=== PATIENT | male | born 1960 | race Caucasian/White ===

== ENCOUNTER 2021-05-01 05:22 | Day surgery (SDC) | payer OTHER ==
[2021-04-24 15:32] LABS: BASOPHILS % (AUTO) 0.6 % (0-1); EOSINOPHILS # (AUTO) 0.1 X10'3 (0-0.9); EOSINOPHILS % (AUTO) 1.1 % (0-6); LYMPHOCYTES # (AUTO) 1.6 X10'3 (1.1-4.8); LYMPHOCYTES % (AUTO) 20.7 % (21-51); MEAN CORPUSCULAR HEMOGLOBIN 32.9 PG (27.0-31.0); MEAN CORPUSCULAR HGB CONC 33.9 g/dL (33.0-36.5); MEAN CORPUSCULAR VOLUME 97.2 FL (78-98); MEAN PLATELET VOLUME 7.4 FL (7.4-10.4); MONOCYTES # (AUTO) 0.6 X10'3 (0-0.9); MONOCYTES % (AUTO) 8.1 % (2-12); NEUTROPHILS # (AUTO) 5.3 X10'3 (1.8-7.7); NEUTROPHILS % (AUTO) 69.5 % (42-75); PRE OP HEMATOCRIT 43.9 % (42.0-52.0); PRE OP HEMOGLOBIN 14.9 g/dL (14.0-17.9); PRE OP PLATELET COUNT 280 X10'3 (140-440); RED BLOOD COUNT 4.51 X10'6 (4.70-6.10); RED CELL DISTRIBUTION WIDTH 12.8 % (11.5-14.5)
[2021-04-24 15:45] LABS: PRE OP PROTIME 10.5 SECONDS (9.0-12.0)
[2021-04-24 15:49] LABS: ALBUMIN 4.3 G/DL (3.4-5.0); ALBUMIN/GLOBULIN RATIO 1.2 (1.1-1.5); ALKALINE PHOSPHATASE 65 IU/L (46-116); BLOOD UREA NITROGEN 24 MG/DL (7-18); BUN/CREATININE RATIO 30.8 (5.4-32.0); CALCIUM 9.1 MG/DL (8.5-10.1); CHLORIDE 103 MMOL/L (99-107); CREATININE 0.78 MG/DL (0.60-1.10); PRE OP ALT 30 U/L (30-65); PRE OP ANION GAP 13 (8-16); PRE OP AST 16 U/L (10-37); PRE OP BILIRUB, TOTAL 0.4 MG/DL (0.0-1.0); PRE OP GLUCOSE 106 MG/DL (70-104); PRE OP POTASSIUM 3.9 MMOL/L (3.4-5.1); PRE OP SODIUM 141 MMOL/L (135-145); TOTAL CARBON DIOXIDE 25.5 MMOL/L (24-32); TOTAL PROTEIN 7.8 G/DL (6.4-8.2); eGFR > 90 ML/MIN
[~2021-05-01] VITALS: Ht 180.3 cm; Wt 85.1 kg
[2021-05-01] VITALS (28 sets, daily range): BP systolic 98–138; BP diastolic 56–77
[~2021-05-01 05:22] MED LIST: ACET-1025 PO; MULT-1085 PO; NAPR220C15 PO; ringers solution, lacted 1,000 ML IV SCH
[2021-05-01] MEDS ORDERED: famotidine 20mg tablet PO ONE (05:30)
[2021-05-01] MEDS ORDERED: tranexamic acid inj. 1,000 MG in 0.7% saline 100 ML PMX IV ONE (05:30)
[2021-05-01] MEDS ORDERED: cefazolin/dext.iso 2gm/50ml IV ONE (05:30)
[2021-05-01] MEDS ORDERED: vancomycin 1,500 MG in NS 300ml IV soln IV ONE (05:30)
[2021-05-01] MEDS ORDERED: tetracaine 1% (10mg/ml) pres. free inj. ONE (07:10)
[2021-05-01] MEDS ORDERED: morphine /PF 1mg/ml 10ml inj. ONE (07:11)
[2021-05-01] MEDS ORDERED: MIDAZolam 1mg/ml 10ml vial ONE (07:11)
[2021-05-01] MEDS ORDERED: propofol inj 20 ML IV ONE ×4 (07:36→08:08)
[2021-05-01] MEDS ORDERED: diphenhydrAMINE 50 mg/ml inj ONE (07:45)
[2021-05-01] MEDS ORDERED: ketorolac trometh. 30mg/ml inj. ONE ×2 (08:07→09:32)
[2021-05-01] MEDS ORDERED: cloNIDine hcl/PF 100mcg/ml inj ONE (08:07)
[2021-05-01] MEDS ORDERED: vancomycin 1,000mg inj ONE (08:07)
[2021-05-01] MEDS ORDERED: ROPIVAcaine 0.5% (5mg/ml) 30ml vial ONE ×2 (08:07→08:10)
[2021-05-01] MEDS ORDERED: fentaNYL/PF 50MCG/1 ML 2ML syringe IV PRN ×2 (08:20)
[2021-05-01] MEDS ORDERED: ringers solution, lacted 1,000 ML IV SCH (08:20)
[2021-05-01] MEDS ORDERED: morphine 4 MG/ML inj SYRINge IV PRN (08:20)
[2021-05-01] MEDS ORDERED: ondansetron/PF 4mg/2ml inj IV PRN ×2 (08:20→10:00)
[2021-05-01] MEDS ORDERED: labetalol 20mg/4ml (5mg/ml) syringe IV PRN (08:20)
[2021-05-01] MEDS ORDERED: hydrALAZINE 20mg/ml inj. IV PRN (08:20)
[2021-05-01] MEDS ORDERED: morphine 2 MG/ML inj. syringe IV PRN (08:20)
[2021-05-01] MEDS ORDERED: fentaNYL/PF 50MCG/1 ML 2ML syringe ONE (09:33)
--- NOTE | 2021-05-01 09:49 | NUR ---
Received from OR via , accompanied by Anesthesiologist DR PARRY and report given by Anesthesiolgist. AWAKENS TO VOICE. VITALS STABLE. DRESSING DI. MAEGAN PAIN. SENSATION AT THE HIPS. GRESHAM WITH CLEAR URINE.
[2021-05-01] MEDS ORDERED: bisacodyl 10mg suppository rectal RC PRN (10:00)
[2021-05-01] MEDS ORDERED: HYDROcodone/acetaminophen 10/325mg tab PO PRN (10:00)
[2021-05-01] MEDS ORDERED: acetaminophen 325mg tablet PO PRN (10:00)
[2021-05-01] MEDS ORDERED: HYDROmorphone 1 mg/ml syringe IV PRN (10:00)
[2021-05-01] MEDS ORDERED: diphenhydrAMINE 25mg capsule PO PRN ×2 (10:00)
[2021-05-01] MEDS ORDERED: magnesium hydroxide 30ml (MOM) UD suspension PO PRN (10:00)
--- NOTE | 2021-05-01 13:59 | NUR ---
Report called to receiving nurse. Transferred via [facility] . Special Issues communicated to receiving nurse.AWAKE AND ORIENTED. VITALS STABLE. DRESSING DI. MAEGAN PAIN. IS STARTING TO MOVE LWR EXTREMITIES SOME. TO SURGICAL RM 345B AT THIS TIME.
[2021-05-01] MEDS: HYDROcodone/acetaminophen 10/325mg tab PO PRN ×2 (15:35→21:43)
[2021-05-01] MEDS: potassium Cl 20mEq in NS 1,000 ML IV SCH ×2 (15:36→23:20)
--- NOTE | 2021-05-01 17:02 | NUR ---
1400 pt arrived to unit. no acute changes from previous assessment per rn palliativemejia fletcher report. pt arrived with iv, iv pump infusing LR@100, chart
[2021-05-01] MEDS ORDERED: NO HOME MEDS (17:26)
[2021-05-01] MEDS ORDERED: aspirin 81mg, enteric-coated 1 TAB TABLET.DR PO ONE (17:30)
[2021-05-01] MEDS: ceFAZolin/D5W- 1GM premix 50 ML IV SCH (17:52)
[2021-05-01] MEDS ORDERED: vancomycin/NS 1 GM ADD-VANTAGE 250 ML IV SCH (20:00)
[2021-05-01] MEDS ORDERED: sennosides 8.6mg tablet PO SCH (21:00)
[2021-05-02] VITALS: BP 108/58
[2021-05-02] MEDS: ceFAZolin/D5W- 1GM premix 50 ML IV SCH (00:16)
[2021-05-02] MEDS: HYDROcodone/acetaminophen 10/325mg tab PO PRN ×4 (03:54→16:49)
[2021-05-02 04:00] VITALS: BP 115/65
[2021-05-02 06:14] LABS: BASOPHILS % (AUTO) 0.5 % (0-1); EOSINOPHILS # (AUTO) 0.3 X10'3 (0-0.9); EOSINOPHILS % (AUTO) 4.7 % (0-6); HEMOGLOBIN 10.8 g/dl (14.0-17.9); LYMPHOCYTES # (AUTO) 1.3 X10'3 (1.1-4.8); LYMPHOCYTES % (AUTO) 22.4 % (21-51); MEAN CORPUSCULAR HEMOGLOBIN 33.9 PG (27.0-31.0); MEAN CORPUSCULAR HGB CONC 34.9 g/dL (33.0-36.5); MEAN CORPUSCULAR VOLUME 97.3 FL (78-98); MONOCYTES % (AUTO) 16.5 % (2-12); NEUTROPHILS # (AUTO) 3.3 X10'3 (1.8-7.7); NEUTROPHILS % (AUTO) 55.9 % (42-75); PLATELET COUNT 184 X10'3 (140-440); RED BLOOD COUNT 3.19 X10'6 (4.70-6.10); RED CELL DISTRIBUTION WIDTH 12.5 % (11.5-14.5)
[2021-05-02 06:35] LABS: ALANINE AMINOTRANSFERASE 16 U/L (12-78); ALBUMIN/GLOBULIN RATIO 1.2 (1.1-1.5); ALKALINE PHOSPHATASE 48 IU/L (46-116); ANION GAP 4 (8-16); ASPARTATE AMINO TRANSFERASE 12 U/L (10-37); BILIRUBIN,TOTAL 0.6 MG/DL (0.1-1.0); BLOOD UREA NITROGEN 12 MG/DL (7-18); BUN/CREATININE RATIO 15.4 (5.4-32.0); CALCIUM 8.6 MG/DL (8.5-10.1); CHLORIDE 107 MMOL/L (99-107); CREATININE 0.78 MG/DL (0.60-1.10); GLUCOSE 104 MG/DL (70-104); POTASSIUM 4.5 MMOL/L (3.5-5.1); SODIUM 140 MMOL/L (135-145); TOTAL CARBON DIOXIDE 29.2 MMOL/L (24-32); TOTAL PROTEIN 5.6 G/DL (6.4-8.2); eGFR > 90 ML/MIN
--- NOTE | 2021-05-02 06:36 | NUR ---
Problems reprioritized. Patient report given, questions answered & plan of care reviewed with HERMINIA. Addendum: 05/02/21 at 0636 by Addison Rice RN Amended: Links added.
[2021-05-02 08:00] VITALS: BP 114/59
[2021-05-02 08:39] LABS: PLATELET ESTIMATE NORMAL; TOTAL CELLS COUNTED 100
[2021-05-02 11:00] VITALS: BP 121/67
[2021-05-02] MEDS ORDERED: HYDR-3972 PO (11:42)
--- NOTE | 2021-05-02 14:53 | NUR ---
Joint surgery consult: Pt s/p L knee surgery seen by MELYSSA for written/verbal high protein ed w/ RD contact information provided. MELYSSA encouraged pt to contact dietitian's office if further questions/concerns. Addendum: 05/02/21 at [address] Á[address] RD Amended: Links added.
--- NOTE | 2021-05-02 15:34 | NUR ---
TO from dr toth for d/c home. f/u in office sat. script of script to [facility]. continue home meds. act as tolerated
== END 2021-05-02 17:07 | disposition home or self-care (01) ==
LOC: PAS 05:22 → SUR 3N 10:05 → PAS 05-02 17:07
PROVIDERS: ATTEND Orthopaedic Surgery
DX: M17.12 Unilateral primary osteoarthritis, left knee (principal); G89.18 Other acute postprocedural pain; Z20.822 Contact with and (suspected) exposure to COVID-19; Z79.899 Other long term (current) drug therapy; Z79.01 Long term (current) use of anticoagulants; Z98.890 Other specified postprocedural states; Z96.651 Presence of right artificial knee joint; Z87.891 Personal history of nicotine dependence; Z88.8 Allergy status to other drugs, medicaments and biological substances; Z88.2 Allergy status to sulfonamides
CPT/HCPCS: 27447; 36415; 64447; 76942; 80053; 82948; 85025; 85610; 85730; 86885; 86900; 86901; 86920; 87081; 93005; 97110; 97161; 97530; C1713; C1758; C1776; J0690; J0735; J1200; J1885; J2250; J2274; J2704; J2795; J3010; J3370; J3480; J3490; J7030; J7040; J7120; U0003; U0005; Z7506; Z7508; Z7512; 85007; A6455; A7000; A9272; G0378

== ENCOUNTER 2024-04-01 09:22 | Day surgery (SDC) | payer BC, MEDICARE ==
[2024-03-23 15:45] LABS: BASOPHILS % (AUTO) 0.5 % (0-1); EOSINOPHILS # (AUTO) 0.2 X10'3 (0-0.9); EOSINOPHILS % (AUTO) 3.4 % (0-6); LYMPHOCYTES # (AUTO) 2.2 X10'3 (1.1-4.8); MEAN CORPUSCULAR HEMOGLOBIN 33.7 PG (27.0-31.0); MEAN CORPUSCULAR HGB CONC 33.5 g/dL (33.0-36.5); MEAN CORPUSCULAR VOLUME 100.6 FL (78-98); MEAN PLATELET VOLUME 7.4 FL (7.4-10.4); MONOCYTES # (AUTO) 0.7 X10'3 (0-0.9); NEUTROPHILS # (AUTO) 3.9 X10'3 (1.8-7.7); NEUTROPHILS % (AUTO) 55.1 % (42-75); PRE OP HEMATOCRIT 39.4 % (42.0-52.0); PRE OP HEMOGLOBIN 13.2 g/dL (14.0-17.9); PRE OP PLATELET COUNT 263 X10'3 (140-440); RED BLOOD COUNT 3.92 X10'6 (4.70-6.10); RED CELL DISTRIBUTION WIDTH 12.8 % (11.5-14.5)
[2024-03-23 15:55] LABS: ALBUMIN/GLOBULIN RATIO 1.2 (1.1-1.5); ALKALINE PHOSPHATASE 58 IU/L (46-116); BLOOD UREA NITROGEN 18 MG/DL (7-18); BUN/CREATININE RATIO 20.2 (10.0-20.0); CHLORIDE 102 MMOL/L (99-107); CREATININE 0.89 MG/DL (0.60-1.10); PRE OP ALT 20 U/L (30-65); PRE OP ANION GAP 8 (8-16); PRE OP AST 13 U/L (10-37); PRE OP BILIRUB, TOTAL 0.4 MG/DL (0.0-1.0); PRE OP GLUCOSE 116 MG/DL (70-104); PRE OP POTASSIUM 3.8 MMOL/L (3.4-5.1); PRE OP SODIUM 138 MMOL/L (135-145); TOTAL CARBON DIOXIDE 28.5 MMOL/L (24-32); TOTAL PROTEIN 7.4 G/DL (6.4-8.2); eGFR 86 ML/MIN
[~2024-04-01] VITALS: Ht 180.3 cm; Wt 80.7 kg
[2024-04-01] VITALS (27 sets, daily range): BP systolic 100–151; BP diastolic 50–76; PULSE 51–74; RESP 8–17; TEMP 97.6–98; O2SAT 94–100
[2024-04-01] MEDS: ceFAZolin 2gm in dextrose, iso 50 ML IV ONE (05:30)
[2024-04-01] MEDS: tranexamic acid 1gm/0.7% sal. 100 ML IV ONE (05:30)
[~2024-04-01 09:22] MED LIST changes: -ACET-1025 PO; +ASPI81TA52 PO; +DICL100G59 TOP; +FERR134T2 PO; +LISI10TA27 PO; +MULT-1074 PO; -MULT-1085 PO; -NAPR220C15 PO; -ringers solution, lacted 1,000 ML IV SCH
[2024-04-01] MEDS: VANCOMYCIN 1,500MG inj. 1,500 MG in normal saline 500ml IV soln 300 ML IV ONE (10:23)
[2024-04-01] MEDS: famotidine 20mg tablet PO ONE (10:23)
[2024-04-01] MEDS: ringers solution, lacted 1,000 ML IV SCH ×2 (10:25→12:40)
[2024-04-01] MEDS ORDERED: vancomycin 1,000mg inj ONE (11:20)
[2024-04-01] MEDS ORDERED: tetracaine 1% (10mg/ml) pres. free inj. ONE (12:02)
[2024-04-01] MEDS ORDERED: BUPIVAcaine/dex-water/PF 7.5 mg/ml 2ml ampul ONE (12:09)
[2024-04-01] MEDS ORDERED: fentaNYL/PF 50MCG/1 ML 2ML syringe ONE (12:16)
[2024-04-01] MEDS ORDERED: MIDAZolam 1 MG/ML 5ML VIAL ONE (12:17)
[2024-04-01] MEDS ORDERED: meperidine/PF 25mg/ml syringe IV PRN ×3 (12:40)
[2024-04-01] MEDS ORDERED: HYDROmorphone/PF 0.2 MG/ML SYRINGE IV PRN ×2 (12:40)
[2024-04-01] MEDS ORDERED: labetalol 20mg/4ml (5mg/ml) syringe IV PRN (12:40)
[2024-04-01] MEDS ORDERED: hydrALAZINE 20mg/ml inj. IV PRN (12:40)
[2024-04-01] MEDS ORDERED: ondansetron/PF 4mg/2ml inj IV PRN ×2 (12:40→14:45)
[2024-04-01] MEDS ORDERED: ROPIVAcaine 0.2%/PF PUMP/bolus 545 ML ADDCANAL SCH (12:40)
[2024-04-01] MEDS ORDERED: ROPIVAcaine 0.2% (10 MG/5 ML) BOLUS INJECTION ADDCANAL PRN (12:40)
[2024-04-01] MEDS ORDERED: proCHLORperazine 10 MG/2 ml inj IV PRN (12:40)
[2024-04-01] MEDS ORDERED: propofol inj 20 ML IV ONE ×3 (12:48)
[2024-04-01] MEDS ORDERED: cloNIDine hcl/PF 100mcg/ml inj ONE (13:29)
[2024-04-01] MEDS: ROPIVAcaine inj 200 MG, epiNEPHrine inj 0.6 MG, morphine 10mg/ml inj. 5 MG in normal sa... IU ONE (14:30)
[2024-04-01] MEDS ORDERED: HYDROmorphone inj. 0.5 MG/0.5 ML DISP.SYRIN IV PRN (14:45)
[2024-04-01] MEDS ORDERED: diphenhydrAMINE 25mg capsule PO PRN ×2 (14:45)
[2024-04-01] MEDS ORDERED: HYDROmorphone 1 mg/ml syringe IV PRN (14:45)
[2024-04-01] MEDS ORDERED: magnesium hydroxide 30ml (MOM) UD suspension PO PRN (14:45)
[2024-04-01] MEDS ORDERED: naloxone 0.4 mg/ml inj IV PRN (14:45)
[2024-04-01] MEDS ORDERED: oxyCODONE IR 5mg (immed. release) tablet PO PRN (14:45)
[2024-04-01] MEDS ORDERED: bisacodyl 10mg suppository rectal RC PRN (14:45)
[2024-04-01] MEDS: acetaminophen 1,000mg/100ml IV 100 ML IV ONE (16:35)
[2024-04-01] MEDS: tranexamic acid inj. 800 MG in normal saline 100ml IV soln 92 ML IV ONE (19:19)
[2024-04-01] MEDS: acetaminophen 325mg tablet PO PRN (19:26)
[2024-04-01] MEDS: gabapentin 300mg capsule PO SCH (20:16)
[2024-04-01] MEDS: sennosides 8.6mg tablet PO SCH (20:16)
[2024-04-01] MEDS: lisinopril 10 MG tablet PO SCH (20:17)
[2024-04-01] MEDS: oxyCODONE IR 5mg (immed. release) tablet PO PRN (20:18)
[2024-04-02 02:00] VITALS: BP 116/53; PULSE 67; RESP 14; TEMP 98.3; O2SAT 98
[2024-04-02 06:00] VITALS: BP 122/64; PULSE 63; RESP 13; TEMP 97.4; O2SAT 97
[2024-04-02 08:00] VITALS: RESP 14; O2SAT 97
[2024-04-02] MEDS: aspirin 325mg tablet PO SCH (08:01)
[2024-04-02] MEDS: multivitamins, therapeutics tablet PO SCH (08:02)
[2024-04-02 09:30] VITALS: RESP 13; O2SAT 97
[2024-04-02 10:00] VITALS: BP 121/55; PULSE 65; RESP 16; TEMP 98.9; O2SAT 98
[2024-04-02 10:12] VITALS: RESP 15
[2024-04-02] MEDS: ferrous sulfate 325mg tablet PO SCH (10:17)
[2024-04-03] MEDS ORDERED: acetaminophen 325mg tablet PO PRN (14:45)
== END 2024-04-02 12:15 | disposition home or self-care (01) ==
LOC: PAS 09:22 → ORTHO 4S 12:00 → UNDOADMIN 14:41 → ORTHO 4S 14:41 → PAS 04-02 12:15
PROVIDERS: ATTEND Orthopaedic Surgery
DX: M25.362 Other instability, left knee (principal); M19.90 Unspecified osteoarthritis, unspecified site; Z79.899 Other long term (current) drug therapy; Z96.651 Presence of right artificial knee joint; Z87.891 Personal history of nicotine dependence; Z88.2 Allergy status to sulfonamides; Z88.8 Allergy status to other drugs, medicaments and biological substances; Z72.89 Other problems related to lifestyle; Z98.890 Other specified postprocedural states; G89.18 Other acute postprocedural pain
CPT/HCPCS: 27486; 36415; 64447; 80053; 82948; 85025; 87070; 87075; 87081; 93005; 97110; 97116; 97161; 97530; C1776; J0131; J0171; J0690; J0735; J1100; J2250; J2274; J2704; J2795; J3010; J3370; J3490; J7030; J7040; J7120; Z7506; Z7508; Z7512; A4215; A4618; A6258; A6449; A7000; C9250; G0378